=== PATIENT | female | born 1990 | race Caucasian/White ===

== ENCOUNTER 2019-05-08 06:32 | Inpatient (IN) ==
[2019-05-08] MEDS ORDERED: NS 100 ML IV 0 ML IV ONE (06:48)
[2019-05-08] MEDS ORDERED: ANCEF 1 GRAM IV PREMIX* 1 G/50 ML BAG IV ONE ×2 (06:49→06:53)
[2019-05-08] MEDS ORDERED: LR 1000 ML IV 1,000 ML IV ONE (06:49)
[2019-05-08] MEDS ORDERED: LR 1000 ML IV 2,000 ML IV ONE (07:01)
[2019-05-08] MEDS ORDERED: D5 1/2 NS 1L W PITOCIN 20 UNITS/L 20 UNITS/1,000 ML BAG IV ONE (07:01)
[2019-05-08] MEDS ORDERED: XYLOCAINE 1 % (PLAIN) ONE (07:01)
[2019-05-08] MEDS ORDERED: DROPERIDOL ONE (07:10)
[2019-05-08] MEDS ORDERED: FENTANYL INJ 100 mcg ONE (08:02)
[2019-05-08] MEDS ORDERED: ZOFRAN INJ 4 MG VIAL IVP PRN ×2 (08:49→09:10)
[2019-05-08] MEDS ORDERED: REGLAN INJ 10 MG VIAL IVP PRN (08:49)
[2019-05-08] MEDS ORDERED: BENADRYL INJ 50 MG VIAL IVP PRN (08:49)
[2019-05-08] MEDS ORDERED: D5 1/2 NS 1000 ML 1,000 ML with PITOCIN 20 UNITS IV SCH ×2 (09:10)
[2019-05-08] MEDS: TORADOL 30 MG VIAL IVP PRN (09:13)
[2019-05-08] MEDS ORDERED: VERSED ONE (10:13)
[2019-05-08] MEDS ORDERED: DIPRIVAN VIAL ONE (10:13)
[2019-05-08] MEDS ORDERED: MARCAINE SPINAL ONE (10:13)
[2019-05-08] MEDS ORDERED: PITOCIN ONE (10:13)
[2019-05-08] MEDS ORDERED: REGLAN INJ 10 MG VIAL ONE (10:13)
[2019-05-08] MEDS: PERCOCET TAB 5/325 MG PO PRN ×3 (11:14→20:55)
[2019-05-08] MEDS: PRENATAL PLUS PO SCH (12:30)
[2019-05-08] MEDS ORDERED: NS IRRIGATION 1000 ML ONE (12:37)
[2019-05-08] MEDS: MYLICON TAB 80 MG CHEW PO PRN (20:55)
[2019-05-09] MEDS: PERCOCET TAB 5/325 MG PO PRN ×2 (01:02→06:45)
[2019-05-09] MEDS: MYLICON TAB 80 MG CHEW PO PRN ×2 (04:14→23:15)
[2019-05-09 06:22] LABS: HEMATOCRIT 33.1 % (36.0-47.0); HEMOGLOBIN 11.3 g/dL (12.0-16.0)
[2019-05-09] MEDS: TORADOL 30 MG VIAL IVP PRN ×3 (08:51→23:15)
[2019-05-09] MEDS: PRENATAL PLUS PO SCH (09:40)
--- NOTE | 2019-05-09 09:40 | NOTE.PROBC ---
Progress Note OB-C/S Subjective Data Subjective: No complaints, decreased lochia. Tolerating regular diet. No N/V. Ambulating well. Curry draining well. Pain under good control with toradol. Objective Data Result Diagrams: 05/09/19 06:05 Objective Data: CV= RRR no MRG Lungs=CTA Bilaterally Abd=(+) BS, soft, ND, appropriately tender near incision. Bandage removed. Incision clean/dry/intact, no erythema, no bleeding, no discharge. Dermabond/St itches intact. Fundus firm/NT/ at -1 cm below umbilicus. Ext= No edema, NT, No Cords. Graduated Compression Stockings/Sequential Compression Devices Bilaterally. Assessment Assessment: s/p LTCS Plan Plan: routine post op care
[2019-05-10] MEDS: TORADOL 30 MG VIAL IVP PRN ×2 (05:22→12:05)
[2019-05-10] MEDS: PRENATAL PLUS PO SCH (09:30)
--- NOTE | 2019-05-10 11:49 | NOTE.PROBC ---
Progress Note OB-C/S Subjective Data Subjective: No complaints, decreased lochia. Tolerating regular diet. No N/V. Ambulating well. Ucrry draining well. Pain under good control with toradol. Objective Data Result Diagrams: 05/09/19 06:05 Objective Data: CV= RRR no MRG Lungs=CTA Bilaterally Abd=(+) BS, soft, ND, appropriately tender near incision. Bandage removed. Incision clean/dry/intact, no erythema, no bleeding, no discharge. Dermabond/St itches intact. Fundus firm/NT/ at -2 cm below umbilicus. Ext= No edema, NT, No Cords. Graduated Compression Stockings/Sequential Compression Devices Bilaterally. Assessment Assessment: routine postop care Plan Plan: probably d/c in A.M. as her child has had a slow start.
[2019-05-10] MEDS ORDERED: TORADOL 30 MG VIAL ONE (12:02)
[2019-05-11] MEDS: TORADOL 30 MG VIAL IVP PRN (03:15)
[2019-05-11] MEDS: PRENATAL PLUS PO SCH (08:15)
--- NOTE | 2019-05-11 08:56 | NOTE.PROBC ---
Progress Note OB-C/S Subjective Data Subjective: No complaints, decreased lochia. Tolerating regular diet. No N/V. Ambulating well. Curry draining well. Pain under good control with toradol. Objective Data Result Diagrams: 05/09/19 06:05 Objective Data: CV= RRR no MRG Lungs=CTA Bilaterally Abd=(+) BS, soft, ND, appropriately tender near incision. Bandage removed. Incision clean/dry/intact, no erythema, no bleeding, no discharge. Dermabond/St itches intact. Fundus firm/NT/ at -3 cm below umbilicus. Ext= No edema, NT, No Cords. Graduated Compression Stockings/Sequential Compression Devices Bilaterally. Assessment Assessment: s/p Plan Plan: doing well seeking an IUD for BC. D/C home and f/u in 2 weeks with pelvic rest for 6 weeks
[2019-05-11 09:17] VITALS: BP 121/62
== END 2019-05-11 11:49 | disposition home or self-care (01) | DRG 788 ==
LOC: LD 06:32 → MED/SURG 08:51
PROVIDERS: ADMIT Obstetrics & Gynecology; ATTEND Obstetrics & Gynecology
DX: O34.211 Maternal care for low transverse scar from previous cesarean delivery; O13.3 Gestational [pregnancy-induced] hypertension without significant proteinuria, third trimester; Z37.0 Single live birth; N85.8 Other specified noninflammatory disorders of uterus; Z3A.37 37 weeks gestation of pregnancy
CPT/HCPCS: 36415; 85014; 85018; A4222; S0197; J0690; J1790; J1885; J2250; J2590; J2704; J2765; J3010; J7120